=== PATIENT | female | born 1985 | race Asian ===

== ENCOUNTER 2020-03-05 10:15 | Outpatient (CLI) | payer OTHER ==
[2020-03-05 11:45] LABS: BASOPHILS # (AUTO) 0.1 10^3/uL (0.0-0.1); BASOPHILS % (AUTO) 1.9 %; EOSINOPHILS # (AUTO) 0.1 10^3/uL (0.0-0.7); EOSINOPHILS % (AUTO) 1.7 %; HGB - HEMOGLOBIN 13.7 g/dL (12.0-16.0); LYMPHOCYTES % (AUTO) 34.4 %; MEAN CORPUSCULAR HEMOGLOBIN 28.4 pg (27.0-31.0); MEAN CORPUSCULAR HGB CONC 32.6 g/dL (32.0-36.0); MEAN PLATELET VOLUME 9.5 fL (7.9-10.8); MONOCYTES # (AUTO) 0.4 10^3/uL (0.0-1.0); MONOCYTES % (AUTO) 6.1 %; NEUTROPHILS # (AUTO) 3.3 10^3/uL (1.5-6.6); NEUTROPHILS % (AUTO) 55.7 %; PLT - PLATELET COUNT 457 10^3/uL (130-450); RED BLOOD COUNT 4.83 10^6/uL (4.20-5.40); RED CELL DISTRIBUTION WIDTH 13.2 % (12.0-15.0); WHITE BLOOD COUNT 5.9 x10^3/uL (4.8-10.8)
[2020-03-05 12:17] LABS: ALBUMIN 3.9 g/dL (3.2-5.5); ALBUMIN/GLOBULIN RATIO 1.1 (1.0-2.2); ALKALINE PHOSPHATASE 64 IU/L (42-121); ALT ALANINE AMINOTRANSFERASE 26 IU/L (10-60); AST ASPARTATE AMINOTRANSFERASE 14 IU/L (10-42); BILIRUBIN,TOTAL 0.5 mg/dL (0.2-1.0); BUN - BLOOD UREA NITROGEN 11 mg/dL (6-20); CALCIUM 9.2 mg/dL (8.5-10.3); CARBON DIOXIDE - CO2 23 mmol/L (21-32); CHLORIDE 105 mmol/L (101-111); CHOL/HDL RATIO 3.9 (<4.4); CHOLESTEROL 164 mg/dL; CREATININE 0.9 mg/dL (0.4-1.0); GLUCOSE 89 mg/dL (70-100); HDL CHOLESTEROL 42 mg/dL; LDL CHOLESTEROL,CALCULATED 101 mg/dL; LDL/HDL RATIO 2.4 (<4.4); SODIUM 136 mmol/L (135-145); TOTAL PROTEIN 7.5 g/dL (6.7-8.2); VLDL CHOLESTEROL 21 mg/dL
== END 2020-03-05 23:59 | disposition home or self-care (01) ==
LOC: LAB.WCP 10:15
PROVIDERS: ATTEND Nurse Practitioner
DX: I10 Essential (primary) hypertension (principal); R79.89 Other specified abnormal findings of blood chemistry; Z13.228 Encounter for screening for other metabolic disorders; Z13.220 Encounter for screening for lipoid disorders
CPT/HCPCS: 36415; 80053; 80061; 83721; 85025

== ENCOUNTER 2020-08-21 14:44 | Outpatient (CLI) | payer OTHER ==
[2020-08-21 19:20] LABS: BASOPHILS # (AUTO) 0.1 10^3/uL (0.0-0.1); BASOPHILS % (AUTO) 0.3 %; HGB - HEMOGLOBIN 14.2 g/dL (12.0-16.0); LYMPHOCYTES # (AUTO) 1.3 10^3/uL (1.5-3.5); LYMPHOCYTES % (AUTO) 5.1 %; MEAN CORPUSCULAR HEMOGLOBIN 28.4 pg (27.0-31.0); MEAN CORPUSCULAR HGB CONC 31.6 g/dL (32.0-36.0); MEAN CORPUSCULAR VOLUME 89.8 fL (81.0-99.0); MEAN PLATELET VOLUME 9.5 fL (7.9-10.8); MONOCYTES # (AUTO) 1.2 10^3/uL (0.0-1.0); MONOCYTES % (AUTO) 4.9 %; NEUTROPHILS # (AUTO) 21.7 10^3/uL (1.5-6.6); PLT - PLATELET COUNT 476 10^3/uL (130-450); RED CELL DISTRIBUTION WIDTH 13.1 % (12.0-15.0); WHITE BLOOD COUNT 24.4 x10^3/uL (4.8-10.8)
[2020-08-21 19:28] LABS: ALBUMIN 3.5 g/dL (3.2-5.5); ALBUMIN/GLOBULIN RATIO 0.9 (1.0-2.2); BILIRUBIN,TOTAL 1.1 mg/dL (0.2-1.0); CALCIUM 8.9 mg/dL (8.5-10.3); CREATININE 0.9 mg/dL (0.4-1.0); TOTAL PROTEIN 7.4 g/dL (6.7-8.2)
[2020-08-21 19:48] LABS: BILIRUBIN,URINE NEGATIVE (NEGATIVE); GLUCOSE, URINE (UA) NEGATIVE (NEGATIVE); KETONES,URINE (UA) 15 mg/dL (NEGATIVE); LEUKOCYTE ESTERASE, URINE NEGATIVE (NEGATIVE); NITRITE,URINE NEGATIVE (NEGATIVE); OCCULT BLOOD,URINE NEGATIVE (NEGATIVE); PH,URINE 6.5 PH (5.0-7.5); PROTEIN,URINE TRACE mg/dL (NEGATIVE); UROBILINOGEN,URINE 1 (NORMAL) E.U./dL (NORMAL)
[2020-08-21 20:06] LABS: BACTERIA,URINE Many /HPF (None Seen); CLARITY,URINE CLEAR (CLEAR); RBC,URINE None Seen /HPF (0-5); SQUAMOUS EPITHELIAL CELL,UR MANY Squamous (<= Few)
[2020-08-21 20:42] LABS: PLATELET ESTIMATE, MANUAL INCREASED (>450,000) (NORMAL); PLATELET MORPHOLOGY NORMAL APPEARANCE (NORMAL); RBC MORPHOLOGY (MULTIPLE) NORMAL APPEARANCE (NORMAL)
[2020-08-21 20:43] LABS: DIFFERENTIAL COMMENT MANUAL=AUTO DIFF
== END 2020-08-21 23:59 | disposition home or self-care (01) ==
LOC: LAB.N 14:44
PROVIDERS: ATTEND Nurse Practitioner
DX: R10.9 Unspecified abdominal pain (principal)
CPT/HCPCS: 36415; 80053; 81001; 82150; 83690; 85025; 87086

== ENCOUNTER 2020-08-22 15:48 | Outpatient (CLI) | payer OTHER ==
[2020-08-22] MEDS ORDERED: IOVERSOL 320 100 ML VIAL IVP ONE ×2 (16:02→17:03)
[2020-08-22] MEDS ORDERED: IOVERSOL 320 50 ML VIAL ONE (16:02)
[2020-08-22] MEDS ORDERED: IOVERSOL 320 50 ML VIAL PO ONE (17:04)
--- NOTE | 2020-08-22 17:29 | CT Report ---
PROCEDURE: Abdomen/Pelvis W INDICATIONS: ABD PAIN, ELEVATED WHITE BLOOD CELL COUNT CONTRAST: IV CONTRAST: Optiray 320 ml: 100 PO CONTRAST: Optiray 320 ml50 TECHNIQUE: After the administration of oral and nonionic IV contrast, 5 mm thick sections acquired from the diap hragms to the symphysis. 5 mm thick coronal and sagittal reformats were acquired. For radiation dos e reduction, the following was used: automated exposure control, adjustment of mA and/or kV accordin g to patient size. COMPARISON: None. FINDINGS: Image quality: Excellent. ABDOMEN: Lung bases: Lung bases are clear. Heart size is normal. Solid organs: Liver and spleen are normal in size and enhancement. Gallbladder demonstrates a hyper enhancing wall Biliary system is non dilated. Generalized inflammatory changes can be seen surrounding the pancreas, as well as throughout the uppe r abdomen, with mesenteric free fluid and fatty stranding. The pancreas enhances normally, without ne crotic areas. No pancreatic ductal dilatation can be seen. No adrenal nodules. Kidneys demonstrate normal size and enhancement. Moderate bilateral hydronephros is can be seen. Peritoneum and bowel: Mild generalized wall thickening can be seen of the stomach. There is a bowel w all thickening can be seen throughout the upper abdomen. The hepatic flexure, the splenic flexure and the descending colon demonstrate a mildly irregular hyperenhancing wall. Mild wall thickening and hy perenhancement can also be seen involving the distal sigmoid colon and the rectum. No definite free a ir can be seen. There is an apparent duodenal diverticulum proximally. No loculated abscess collectio n can be seen. Mild free fluid can be seen, including layering within the pelvis. A normal appendix i s seen, as on series 6 image 30. Nodes and vessels: No retroperitoneal or mesenteric adenopathy by size criteria. However, borderline prominent mesenteric lymph nodes are seen. Aorta and inferior vena cava are normal in size. Miscellaneous: A mild fat-containing periumbilical hernia is seen. PELVIS: Genitourinary: Bladder wall thickness is normal. Miscellaneous: No inguinal hernias or adenopathy. Bones: No suspicious bony lesions. No vertebral body compression fractures. IMPRESSION: Generalized inflammatory change can be seen involving the upper abdomen, with numerous a reas of bowel wall thickening as well as fatty stranding. Borderline prominent lymph nodes are seen. The imaging appearance is nonspecific, although please consider pancreatitis. No findings of perforation or abscess are detected. Generalized free fluid can be seen, including a mild amount of free fluid layering within the pelvis. Mild bilateral hydronephrosis can be seen. Incidental note is made of: Fat-containing periumbilical hernia Normal appendix Note: Case discussed by telephone with Yina Hutton at 4:25 PM [place] time on 08/22/2020. Reviewed by: Ancelmo Hidalgo MD on 08/22/2020 4:27 PM [place] Approved by: Ancelmo Hidalgo MD on 08/22/2020 4:27 PM [place]ST Station ID: [id number]
== END 2020-08-22 15:49 | disposition home or self-care (01) ==
LOC: DI 15:48
PROVIDERS: ATTEND Nurse Practitioner Family
DX: N13.30 Unspecified hydronephrosis (principal); R93.5 Abnormal findings on diagnostic imaging of other abdominal regions, including retroperitoneum; R59.0 Localized enlarged lymph nodes
CPT/HCPCS: 74177; Q9967

== ENCOUNTER 2020-08-26 14:31 | Outpatient (CLI) | payer OTHER ==
[2020-08-26 18:53] LABS: BASOPHILS % (AUTO) 0.7 %; EOSINOPHILS % (AUTO) 0.6 %; LYMPHOCYTES % (AUTO) 10.7 %; MEAN CORPUSCULAR HEMOGLOBIN 28.6 pg (27.0-31.0); MEAN CORPUSCULAR HGB CONC 32.6 g/dL (32.0-36.0); MEAN CORPUSCULAR VOLUME 87.8 fL (81.0-99.0); MEAN PLATELET VOLUME 9.1 fL (7.9-10.8); MONOCYTES % (AUTO) 5.8 %; NEUTROPHILS % (AUTO) 77.9 %; PLT - PLATELET COUNT 690 10^3/uL (130-450); RED CELL DISTRIBUTION WIDTH 13.2 % (12.0-15.0); WHITE BLOOD COUNT 18.7 x10^3/uL (4.8-10.8)
[2020-08-26 18:58] LABS: ALBUMIN 3.1 g/dL (3.2-5.5); ALBUMIN/GLOBULIN RATIO 0.7 (1.0-2.2); ALKALINE PHOSPHATASE 100 IU/L (42-121); ALT ALANINE AMINOTRANSFERASE 15 IU/L (10-60); AMYLASE 53 U/L (28-100); AST ASPARTATE AMINOTRANSFERASE 12 IU/L (10-42); BILIRUBIN,TOTAL 0.5 mg/dL (0.2-1.0); BUN - BLOOD UREA NITROGEN 7 mg/dL (6-20); CALCIUM 8.9 mg/dL (8.5-10.3); CARBON DIOXIDE - CO2 26 mmol/L (21-32); CHLORIDE 97 mmol/L (101-111); CHOL/HDL RATIO 6.1 (<4.4); CHOLESTEROL 121 mg/dL; CREATININE 0.8 mg/dL (0.4-1.0); GLUCOSE 107 mg/dL (70-100); HDL CHOLESTEROL 20 mg/dL; LDL CHOLESTEROL,CALCULATED 75 mg/dL; LDL/HDL RATIO 3.8 (<4.4); LIPASE 47 U/L (22-51); SODIUM 136 mmol/L (135-145); TOTAL PROTEIN 7.5 g/dL (6.7-8.2); VLDL CHOLESTEROL 26 mg/dL
[2020-08-26 19:27] LABS: ABNORMAL LYMPHS % (MANUAL) 0 %
[2020-08-26 21:26] LABS: BAND NEUTROPHILS % (MANUAL) 14 %; EOSINOPHILS # (MANUAL) 0.4 10^3/uL (0-0.7); LYMPHOCYTES # (MANUAL) 1.3 10^3/uL (1.5-3.5); LYMPHOCYTES % (MANUAL) 6 %; MONOCYTES # (MANUAL) 1.7 10^3/uL (0.0-1.0); RBC MORPHOLOGY (MULTIPLE) NORMAL APPEARANCE (NORMAL)
[2020-08-26 21:27] LABS: PLATELET ESTIMATE, MANUAL INCREASED (>450,000) (NORMAL); PLATELET MORPHOLOGY NORMAL APPEARANCE (NORMAL)
[2020-08-27 01:18] LABS: DIFFERENTIAL COMMENT MANUAL DIFFERENTIAL
== END 2020-08-26 23:59 | disposition home or self-care (01) ==
LOC: LAB.WCP 14:31
PROVIDERS: ATTEND Nurse Practitioner Family
DX: K85.00 Idiopathic acute pancreatitis without necrosis or infection (principal); R10.13 Epigastric pain
CPT/HCPCS: 36415; 80053; 80061; 82150; 83690; 83721; 85025

== ENCOUNTER 2020-08-28 04:43 | Emergency (ER) | payer OTHER ==
--- NOTE | 2020-08-28 05:17 | ED Physician Documentation ---
History of Present Illness - Stated complaint Stated Complaint: CHILLS - Chief complaint Chief Complaint: Abd Pain - History obtained from History obtained from: Patient - Additonal information Additional information: Patient comes emergency department with chief complaint of chills this morning. Patient has been in the process of work-up and treatment for leukocytosis and pancreatitis with her primary care physician as an outpatient. The patient states that the symptoms first started 1 to 2 weeks ago, and that actually, her abdominal pain and nausea have much improved. Patient has not been running any fevers that she knows of, though she has not had regular thermometer at home and has had to use a knee thermometer. The patient states that overall, she feels quite a bit better, but then had the chills this morning. She states she googled chills and saw descriptions of sepsis and became concerned. Patient scheduled to see her primary care physician today. She has had 2 sets of labs in the last week which have demonstrated initially a quite high white count of 24.4 but on most recent value, has come down to 18.7. Initially, patient had elevated amylase and lipase, though these were normal on the last set of labs. Patient also had CT scan of the abdomen pelvis which did show some fluid in the upper abdomen and some inflammation of the upper abdominal structures. This was felt to be consistent with probable pancreatitis by the radiologist. No other complaints at this time. No new development of symptoms beyond the chills. Review of Systems Ten Systems: 10 systems reviewed and negative Constitutional: reports: Chills, Reviewed and negative. denies: Fever Eyes: reports: Reviewed and negative Ears: reports: Reviewed and negative Nose: reports: Reviewed and negative. denies: Rhinorrhea / runny nose Throat: reports: Reviewed and negative Cardiac: reports: Reviewed and negative. denies: Chest pain / pressure Respiratory: reports: Reviewed and negative. denies: Dyspnea, Cough GI: reports: Reviewed and negative. denies: Abdominal Pain, Nausea, Vomiting : reports: Reviewed and negative Skin: reports: Reviewed and negative Musculoskeletal: reports: Reviewed and negative Neurologic: reports: Reviewed and negative Psychiatric: reports: Reviewed and negative Endocrine: reports: Reviewed and negative Immunocompromised: reports: Reviewed and negative PD PAST MEDICAL HISTORY - Past Medical History Past Medical History: Yes Cardiovascular: Hypertension - Past Surgical History Past Surgical History: No - Allergies Allergies/Adverse Reactions: Allergies Allergy/AdvReac Type Severity Reaction Status Date / Time No Known Drug Allergies Allergy Verified 08/28/20 04:46 - Social History Does the pt smoke?: No Smoking Status: Never smoker Does the pt drink ETOH?: No Does the pt have substance abuse?: No - Immunizations Immunizations are current?: Yes - POLST Patient has POLST: No PD ED PE NORMAL - Vitals Vital signs reviewed: Yes - General General: Alert and oriented X 3, No acute distress, Well developed/nourished - HEENT HEENT: Atraumatic, PERRL, EOMI, Moist mucous membranes - Neck Neck: Supple, no meningeal sign - Cardiac Cardiac: RRR, No murmur, Strong equal pulses - Respiratory Respiratory: No respiratory distress, Clear bilaterally - Abdomen Abdomen: Soft, Non tender, Non distended - Back Back: No CVA TTP - Derm Derm: Normal color, Warm and dry, No rash - Extremities Extremities: No deformity, No edema, No calf tenderness / cord - Neuro Neuro: Alert and oriented X 3, catering assistant 2-12 intact, Normal speech - Psych Psych: Normal mood, Normal affect Results - Vitals Vitals: Vital Signs - 24 hr 08/28/20 08/28/20 04:46 04:52 Temperature 36.5 C 36.5 C Heart Rate 100 100 Respiratory 16 16 Rate Blood Pressure 160/100 H 160/100 H O2 Saturation 100 100 Oxygen O2 Source Room air PD MEDICAL DECISION MAKING - ED course Complexity details: considered differential, d/w patient ED course: I reviewed the patient's records. She was overall very well-appearing and I did reassure her that her vital signs and physical exam do not indicate sepsis whatsoever. I did offer to repeat her labs and see how her white blood cell count is doing, but after some consideration, the patient stated that she would rather just go see her primary care physician for repeat labs. The patient states she overall feels better and just got worried about the chills. She feels reassured by coming here and being examined and evaluated and does not feel inclined to have further blood work done in the emergency department. At this point in time, given the patient's abdomen is feeling better, I do not feel that a repeat CT scan is indicated. We have discussed the usual indications for return. Departure - Departure Disposition: Home, Self Care Clinical Impression: Chills (without fever) Leukocytosis Qualifiers: Leukocytosis type: unspecified Qualified Code(s): D72.829 - Elevated white blood cell count, unspecified Condition: Stable Comments: Your labs have been reviewed today, and you did have a good rather significant white blood cell elevation last week. This does appear to be improving, though it is not clear exactly what has caused her symptoms, as your pancreatic enzymes are normal on laboratory values. Most likely, your body is working through a viral pancreatitis,, though there could be other causes. There is no evidence of sepsis tonight. However, if you begin to run high fevers or feel dizzy/faint, you should be reevaluated without delay. You have opted to forego repeat laboratory testing here in the emergency department. Please drink plenty of fluids and follow-up with your doctor as planned.
[2020-08-28 05:23] VITALS: BP 159/90
== END 2020-08-28 05:23 | disposition home or self-care (01) ==
LOC: ED 04:43
DX: R68.83 Chills (without fever) (principal); D72.829 Elevated white blood cell count, unspecified; I10 Essential (primary) hypertension
CPT/HCPCS: 99281; 99282

== ENCOUNTER 2020-09-05 08:00 | Outpatient (CLI) | payer OTHER ==
[2020-09-05 18:11] LABS: BASOPHILS # (AUTO) 0.1 10^3/uL (0.0-0.1); EOSINOPHILS # (AUTO) 0.2 10^3/uL (0.0-0.7); EOSINOPHILS % (AUTO) 3.9 %; HGB - HEMOGLOBIN 13.4 g/dL (12.0-16.0); LYMPHOCYTES # (AUTO) 1.9 10^3/uL (1.5-3.5); MEAN CORPUSCULAR HEMOGLOBIN 27.4 pg (27.0-31.0); MEAN CORPUSCULAR HGB CONC 30.3 g/dL (32.0-36.0); MEAN CORPUSCULAR VOLUME 90.4 fL (81.0-99.0); MONOCYTES # (AUTO) 0.3 10^3/uL (0.0-1.0); MONOCYTES % (AUTO) 6.6 %; NEUTROPHILS # (AUTO) 1.9 10^3/uL (1.5-6.6); NEUTROPHILS % (AUTO) 43.3 %; PLT - PLATELET COUNT 626 10^3/uL (130-450); RED BLOOD COUNT 4.89 10^6/uL (4.20-5.40); RED CELL DISTRIBUTION WIDTH 13.1 % (12.0-15.0); WHITE BLOOD COUNT 4.4 x10^3/uL (4.8-10.8)
[2020-09-05 18:33] LABS: ALBUMIN 3.5 g/dL (3.2-5.5); ALBUMIN/GLOBULIN RATIO 0.9 (1.0-2.2); BILIRUBIN,TOTAL 0.5 mg/dL (0.2-1.0); CALCIUM 9.2 mg/dL (8.5-10.3); CREATININE 1.1 mg/dL (0.4-1.0); TOTAL PROTEIN 7.5 g/dL (6.7-8.2)
== END 2020-09-05 23:59 | disposition home or self-care (01) ==
LOC: LAB.WCP 08:00
PROVIDERS: ATTEND Nurse Practitioner Family
DX: K85.00 Idiopathic acute pancreatitis without necrosis or infection (principal)
CPT/HCPCS: 36415; 80053; 82150; 83690; 85025

== ENCOUNTER 2020-09-10 03:54 | Observation (INO) | payer OTHER ==
--- NOTE | 2020-09-10 04:12 | ED Physician Documentation ---
PD HPI ABD PAIN - Stated complaint Stated Complaint: ADB PX - Chief complaint Chief Complaint: Abd Pain - History obtained from History obtained from: Patient - History of Present Illness Timing - onset: Enter time (23:00), Last night Timing - details: Abrupt onset, Waxing and waning Pain level now: 8 Quality: Pain Location: RUQ, Epigastric Radiation: Other (no radiation) Improved by: Other Associated symptoms: No: Fever Recently seen: Clinic, Emergency Dept - Additional information Additional information: patient has had episodic upper abdominal discomfort past few weeks for which she has had outpatient testing including CT A/P, as well as ED evaluation earlier this month. Unclear etiology; pancreatitis was suspected although she only had mild elevations in amylase/lipase and CT did not clearly demonstrate findings of pancreatitis. Patient is scheduled to have outpatient RUQ US in 3 days. She presents tonight due to epigastric and RUQ pain. This episode started at 11 PM and was initially a burning sensation "like stomach acid" (per patient), but progressed to saul pain and pressure sensation that waxes and wanes without apparent exacerbating nor ameliorating factors. Review of Systems Constitutional: reports: Reviewed and negative Eyes: reports: Reviewed and negative Ears: reports: Reviewed and negative Nose: reports: Reviewed and negative Throat: reports: Reviewed and negative Cardiac: reports: Reviewed and negative Respiratory: reports: Reviewed and negative GI: reports: Abdominal Pain, Nausea. denies: Abdominal Swelling, Vomiting, Constipation, Diarrhea : denies: Dysuria, Frequency, Now EGA Skin: reports: Reviewed and negative Musculoskeletal: reports: Reviewed and negative Neurologic: denies: Generalized weakness, Headache PD PAST MEDICAL HISTORY - Past Medical History Past Medical History: Yes Cardiovascular: Hypertension - Past Surgical History Past Surgical History: No - Present Medications Home Medications: Ambulatory Orders Medication Instructions Recorded Confirmed Ethinyl Estradiol/Drospirenone 1 each PO 09/10/20 [Iqra 28 Tablet] - Allergies Allergies/Adverse Reactions: Allergies Allergy/AdvReac Type Severity Reaction Status Date / Time No Known Drug Allergies Allergy Verified 09/10/20 04:01 - Social History Does the pt smoke?: No Smoking Status: Never smoker Does the pt drink ETOH?: No Does the pt have substance abuse?: No - Immunizations Immunizations are current?: Yes - POLST Patient has POLST: No PD ED PE NORMAL - Vitals Vital signs reviewed: Yes - General General: Alert and oriented X 3, No acute distress, Well developed/nourished - HEENT HEENT: Moist mucous membranes - Neck Neck: Supple, no meningeal sign - Cardiac Cardiac: No murmur - Respiratory Respiratory: No respiratory distress, Clear bilaterally - Abdomen Abdomen: Soft, Non distended, Other (TTP RUQ and epigastrium) - Back Back: No CVA TTP - Derm Derm: Normal color, Warm and dry - Extremities Extremities: No edema PD ED PE EXPANDED - Cardiac Cardiac: Tachy, Regular Rhythm Results - Vitals Vitals: Vital Signs - 24 hr 09/10/20 09/10/20 09/10/20 03:56 06:00 06:44 Temperature 36.4 C L 36.5 C 36.6 C Heart Rate 112 H 105 H 122 H Respiratory 18 18 18 Rate Blood Pressure 185/109 H 199/97 H 190/121 H O2 Saturation 100 100 100 09/10/20 08:00 Temperature Heart Rate 110 H Respiratory Rate Blood Pressure 179/101 H O2 Saturation 100 Oxygen O2 Source Room air - Labs Labs: Laboratory Tests 09/10/20 09/10/20 09/10/20 04:10 04:10 04:18 WBC 9.1 RBC 4.83 Hgb 13.5 Hct 43.3 MCV 89.6 MCH 28.0 MCHC 31.2 L RDW 13.2 Plt Count 570 H MPV 8.8 Neut # (Auto) 6.4 Lymph # (Auto) 2.0 [place] # (Auto) 0.4 Eos # (Auto) 0.1 Baso # (Auto) 0.2 H Absolute Nucleated RBC 0.00 Nucleated RBC % 0.0 Sodium Potassium Chloride Carbon Dioxide Anion Gap BUN Creatinine Estimated GFR (MDRD) Glucose Calcium Total Bilirubin AST ALT Alkaline Phosphatase Total Protein Albumin Globulin Albumin/Globulin Ratio Lipase Urine Color YELLOW Urine Clarity CLEAR Urine pH 6.0 Ur Specific [place] 1.020 Urine Protein NEGATIVE Urine Glucose (UA) NEGATIVE Urine Ketones NEGATIVE Urine Occult Blood NEGATIVE Urine Nitrite NEGATIVE Urine Bilirubin NEGATIVE Urine Urobilinogen 0.2 (NORMAL) Ur Leukocyte Esterase NEGATIVE Ur Microscopic Review NOT INDICATED Urine Culture Comments NOT INDICATED Urine HCG, Qual NEGATIVE 09/10/20 04:18 WBC RBC Hgb Hct MCV MCH MCHC RDW Plt Count MPV Neut # (Auto) Lymph # (Auto) [place] # (Auto) Eos # (Auto) Baso # (Auto) Absolute Nucleated RBC Nucleated RBC % Sodium 135 Potassium 3.3 L Chloride 101 Carbon Dioxide 22 Anion Gap 12.0 BUN 12 Creatinine 0.9 Estimated GFR (MDRD) 72 L Glucose 122 H Calcium 9.1 Total Bilirubin 0.3 AST 32 ALT 82 H Alkaline Phosphatase 67 Total Protein 8.0 Albumin 4.0 Globulin 4.0 Albumin/Globulin Ratio 1.0 Lipase 49 Urine Color Urine Clarity Urine pH Ur Specific [place] Urine Protein Urine Glucose (UA) Urine Ketones Urine Occult Blood Urine Nitrite Urine Bilirubin Urine Urobilinogen Ur Leukocyte Esterase Ur Microscopic Review Urine Culture Comments Urine HCG, Qual - Rads (name of study) RUQ US Radiology: Prelim report reviewed PD MEDICAL DECISION MAKING - ED course Complexity details: reviewed results, re-evaluated patient, considered differential, d/w patient ED course: blood tests are reassuring and significantly improved from some recent results. However, RUQ US demonstrates cholelithiasis with 1.3cm stone impacted in gallbladder neck as well as pericholecystic fluid and dilated extrahepatic ducts. Patient had good pain relief with IV toradol and 0.5mg dilaudid, but eventually required repeat dose of dilaudid. Results d/w Dr. Campos, will admit to [facility]. I also d/w Dr. Albarado (at [place]), agrees patient can be admitted to [facility] but requests [place] be recontacted if patient requires transfer to another facility. Departure - Departure Disposition: [address] [facility] DC/Xfer Clinical Impression: Biliary colic Condition: Stable
[2020-09-10 04:25] LABS: BASOPHILS # (AUTO) 0.2 10^3/uL (0.0-0.1); BASOPHILS % (AUTO) 1.8 %; EOSINOPHILS # (AUTO) 0.1 10^3/uL (0.0-0.7); EOSINOPHILS % (AUTO) 1.3 %; HGB - HEMOGLOBIN 13.5 g/dL (12.0-16.0); LYMPHOCYTES % (AUTO) 21.5 %; MEAN CORPUSCULAR HGB CONC 31.2 g/dL (32.0-36.0); MEAN CORPUSCULAR VOLUME 89.6 fL (81.0-99.0); MEAN PLATELET VOLUME 8.8 fL (7.9-10.8); MONOCYTES # (AUTO) 0.4 10^3/uL (0.0-1.0); MONOCYTES % (AUTO) 4.4 %; NEUTROPHILS # (AUTO) 6.4 10^3/uL (1.5-6.6); NEUTROPHILS % (AUTO) 70.7 %; PLT - PLATELET COUNT 570 10^3/uL (130-450); RED BLOOD COUNT 4.83 10^6/uL (4.20-5.40); RED CELL DISTRIBUTION WIDTH 13.2 % (12.0-15.0); WHITE BLOOD COUNT 9.1 x10^3/uL (4.8-10.8)
[2020-09-10 04:26] LABS: BILIRUBIN,URINE NEGATIVE (NEGATIVE); GLUCOSE, URINE (UA) NEGATIVE (NEGATIVE); KETONES,URINE (UA) NEGATIVE (NEGATIVE); LEUKOCYTE ESTERASE, URINE NEGATIVE (NEGATIVE); NITRITE,URINE NEGATIVE (NEGATIVE); OCCULT BLOOD,URINE NEGATIVE (NEGATIVE); PROTEIN,URINE NEGATIVE (NEGATIVE); UROBILINOGEN,URINE 0.2 (NORMAL) E.U./dL (NORMAL)
[2020-09-10 04:29] LABS: CLARITY,URINE CLEAR (CLEAR); HCG UR QUAL NEGATIVE
[2020-09-10 04:39] LABS: BILIRUBIN,TOTAL 0.3 mg/dL (0.2-1.0); CALCIUM 9.1 mg/dL (8.5-10.3); CREATININE 0.9 mg/dL (0.4-1.0)
[2020-09-10] MEDS ORDERED: HYDROmorphone 1 MG/ML CARPUJECT IVP STA (04:42)
[2020-09-10] MEDS ORDERED: KETOROLAC 30 MG/ML VIAL IVP STA (04:42)
[2020-09-10] MEDS ORDERED: SODIUM CHLORIDE 0.9% 1,000 ML IV STA (08:23)
[2020-09-10] MEDS ORDERED: HYDROmorphone 0.5 MG/0.5 ML SYRINGE IVP STA ×2 (08:26→11:10)
[2020-09-10] MEDS ORDERED: ONDANSETRON 4 MG/2 ML VIAL IVP PRN (11:08)
[2020-09-10] MEDS ORDERED: PIPERACILLIN/TAZOBACTAM 3.375 GM in SODIUM CHLORIDE 0.9% MINIBAG 100 ML IV STA (11:25)
--- NOTE | 2020-09-10 11:52 | ED Physician Documentation ---
ED Addendum - Addendum Addendum: 09/10/20 11:51 35-year-old female being hospitalized with acute cholecystitis has a respiratory PCR drawn to rule out coronavirus prior to admission
--- NOTE | 2020-09-10 12:29 | Ultrasound Report ---
PROCEDURE: Abdomen Limited INDICATIONS: abd. pain TECHNIQUE: Real-time scanning was performed of the abdominal and retroperitoneal organs, with image documentatio n. COMPARISON: None. FINDINGS: Liver: Liver is enlarged measuring 16.3 cm with increased echogenicity. Gallbladder: Focal areas of increased echogenicity are present within the gallbladder. Wall thickness is at the upper limits of normal measuring 2.8 mm. Mild pericholecystic fluid is present. Biliary ducts: Intrahepatic bile ducts are non-dilated. Extrahepatic bile duct caliber measures 10. 1 mm. Normal is 6-7 mm or less in diameter, or 10 mm or less post-cholecystectomy. Pancreas: Visualized portions of the pancreas are sonographically normal. Kidneys: Right kidney measures 10.1 cm long. No nephrolithiasis. Minimal appearance of right pelvi ocaliectasis is present. No solid masses. IVC: Intrahepatic inferior vena cava is patent. Miscellaneous: No free abdominal fluid. IMPRESSION: 1. Hepatomegaly steatosis. 2. Cholelithiasis with borderline wall thickness and peristalsis fluid suggestive of developing silviano cystitis. Clinical correlation is recommended. It is noted that the common bile duct is enlarged. Dis roz ductal stone cannot be excluded although not definitively visualized. CT abdomen pelvis or MRCP i s recommended for further evaluation. Reviewed by: Sayda Toribio MD on 09/10/2020 12:28 PM PST Approved by: Sayda Toribio MD on 09/10/2020 12:28 PM PST Station ID: [id number]
[2020-09-10 13:04] LABS: C. PNEUMONIAE- RESP PCR PANEL NOT DETECTED
[2020-09-10] MEDS: D5NS W/20 MEQ KCL 1,000 ML IV SCH ×2 (13:23→20:23)
[2020-09-10] MEDS: KETOROLAC 30 MG/ML VIAL IVP SCH ×2 (13:23→18:13)
[2020-09-10] MEDS: methocarbamoL 500 MG TABLET PO SCH ×2 (13:33→18:13)
[2020-09-10] MEDS: METOCLOPRAMIDE 10 MG/2 ML VIAL IVP SCH ×2 (13:34→18:13)
--- NOTE | 2020-09-10 18:20 | SURGERY HX AND PHYSICAL(T) ---
Surgical History & Physical - Chief Complaint/HPI Chief Complaint: Abdominal pain; biliary colic History of Present Illness: 35-year-old female nuliparous/gravid, no prior abdominal surgery, who presents with recurrent ongoing abdominal pain that was recently evaluated through the emergency room and concerning for pancreatitis. She was pending continued outpatient work-up up until the time she was referred to the emergency room. She has had multiple episodes of nausea abdominal pain associated with fatty foods. Her ultrasound was consistent with cholelithiasis and early cholecystitis. Patient was explained this is likely the etiology of her recent diagnosis of pancreatitis which was in all probability gallstone in etiology. She was counseled that given the findings of biliary dilatation the concern for choledocholithiasis would necessarily need to be ruled out by MRCP prior to proceeding with surgical resection. She has no significant past medical history, no significant family history, and is eager for definitive intervention. She is admitted and pending operative intervention following completion of her work-up. - PMH/PSH/Social Hx Does the pt have a hx of MRSA?: No Cardiovascular: Hypertension Respiratory: Pneumonia PMH Other: pancreatitis Smoking Status: Never smoker Does the pt drink ETOH?: No Does the pt have substance abuse?: No - Home Meds and Allergies Home Medications: Ethinyl Estradiol/Drospirenone [Iqra 28 Tablet] 1 each PO 09/10/20 Metoprolol Tartrate [Lopressor] 50 mg PO DAILY 09/10/20 Omeprazole [PriLOSEC] 20 mg PO DAILY 09/10/20 Sucralfate [Carafate] 09/10/20 Allergies/Adverse Reactions: Allergies Allergy/AdvReac Type Severity Reaction Status Date / Time No Known Drug Allergies Allergy Verified 09/10/20 04:01 - Review of Systems Constitutional: Fatigue, Fever Gastrointestinal: Nausea, Vomiting, Abdominal pain - Vital Signs Heart Rate: 99 Blood Pressure: 168/122 Temperature: 36.9 C Respiratory Rate: 18 O2 Saturation: 99 Weight (kg): 94 kg Height: 1.63 m - Physical Exam General Appearance: positive: No acute distress, Alert Eyes Bilatera: positive: Normal inspection, PERRL, EOMI ENT: positive: ENT inspection nml Neck: positive: Nml inspection Respiratory: positive: Chest non-tender, No respiratory distress, Breath sounds nml. negative: Wheezes, Rales, Rhonchi Cardiovascular: positive: Regular rate & rhythm Abdomen: positive: Non-tender, No distention. negative: Tenderness, Guarding, Rebound Skin: positive: Color nml Extremities: positive: Non-tender, Full ROM, Nml appearance, No pedal edema Neurologic/Psychiatric: positive: Oriented x3, CN's nml (2-12), Motor nml, Sensation nml, Mood/affect nml - Patient Review Patient Review: Problems were reviewed with the patient during this visit. Medications were reviewed with the patient during this visit. Allergies were reviewed this patient during this visit. Pertinent Tests Reviewed: All pertitent test for this patient were reviewed. - Assessment & Plan Assessment and Plan: 35-year-old female with no significant past medical history presenting with early acute cholecystitis and biliary colic with multiple recent trips to the ER for abdominal pain; most recent of which concerning for pancreatitis however in this clinical context following abdominal ultrasound with cholelithiasis was likely gallstone in etiology. There is no leukocytosis. Concern for choledocholithiasis. Pending MRCP. Plan going forward is as follows: 1. Bowel rest, IV fluid resuscitation, IV antibiotics. 2. Preoperative chest x-ray, preoperative EKG, labs evaluated. 3. Planned diagnostic laparoscopy, laparoscopic cholecystectomy, other indicated procedures. Patient counseled of the risk associated with operative intervention including but not limited to conversion to open procedure, injury to local structures, and anesthesia risks of heart attack, stroke, . There is also the risk of injury to the biliary system. There is also concern for choledocholithiasis which we will evaluate with MRCP. 4. Postoperative care under observation status with continued IV antibiotics. CT abdomen pelvis August 22, 2020 impression: 1. Generalized inflammatory change can seen involving the upper abdomen, with numerous areas of bowel wall thickening as well as fatty stranding. Borderline prominent lymph nodes are seen. The imaging appearance is nonspecific although please consider pancreatitis. 2. No findings of perforation or abscess are detected. 3. Generalized free fluid can be seen, involving a mild amount of free fluid layering within the pelvis. 4. Mild bilateral hydronephrosis can be seen. Abdominal ultrasound September 10 impression: 1. Hepatomegaly with steatosis. 2. Cholelithiasis with borderline wall thickness and peripancreatic fluid suggested of developing cholecystitis. Clinical correlation is recommended. It is noted that the common bile duct is enlarged. Distal ductal stone cannot be excluded although not definitively visualized. CT abdomen pelvis or MRCP is recommended for further evaluation. Please note that voice recognition software was used to transcribe this note and inadvertent errors might persist in spite of review and editing. I am obliged to you for your attention. I am thankful to you for allowing me to participate with you in this care of this patient.
[2020-09-10] MEDS: LORazepam 2 MG/ML VIAL IVP PRN (18:41)
[2020-09-10] MEDS: METOPROLOL 5 MG/5 ML VIAL IVP PRN (18:42)
[2020-09-10] MEDS: polyethylene glycoL 3350 17 GM PACKET PO SCH (20:20)
[2020-09-10] MEDS: oxyCODONE 5 MG TABLET PO PRN (20:21)
[2020-09-10] MEDS: DOCUSATE SODIUM 100 MG CAPSULE PO SCH (20:21)
[2020-09-11] MEDS: METOCLOPRAMIDE 10 MG/2 ML VIAL IVP SCH ×4 (00:01→23:59)
[2020-09-11] MEDS: methocarbamoL 500 MG TABLET PO SCH ×5 (00:03→23:40)
[2020-09-11] MEDS: KETOROLAC 30 MG/ML VIAL IVP SCH ×5 (00:03→23:40)
[2020-09-11] MEDS: D5NS W/20 MEQ KCL 1,000 ML IV SCH ×3 (04:17→17:46)
[2020-09-11 05:15] LABS: ALBUMIN 3.2 g/dL (3.2-5.5); ALBUMIN/GLOBULIN RATIO 0.9 (1.0-2.2); ALKALINE PHOSPHATASE 62 IU/L (42-121); ALT ALANINE AMINOTRANSFERASE 74 IU/L (10-60); AST ASPARTATE AMINOTRANSFERASE 27 IU/L (10-42); BILIRUBIN,TOTAL 0.6 mg/dL (0.2-1.0); BUN - BLOOD UREA NITROGEN < 5 mg/dL (6-20); CALCIUM 9.4 mg/dL (8.5-10.3); CARBON DIOXIDE - CO2 22 mmol/L (21-32); CHLORIDE 105 mmol/L (101-111); CREATININE 0.8 mg/dL (0.4-1.0); GLUCOSE 146 mg/dL (70-100); TOTAL PROTEIN 6.8 g/dL (6.7-8.2)
[2020-09-11] MEDS: oxyCODONE 5 MG TABLET PO PRN (05:15)
[2020-09-11] MEDS ORDERED: MORPHINE 2 MG/ML CARPUJECT IVP PRN (07:47)
[2020-09-11] MEDS ORDERED: fentaNYL 100 MCG/2 ML VIAL IVP PRN (07:47)
[2020-09-11] MEDS ORDERED: HYDROmorphone 0.5 MG/0.5 ML SYRINGE IVP PRN (07:47)
[2020-09-11] MEDS ORDERED: ONDANSETRON 4 MG/2 ML VIAL IVP PRN ×2 (07:47→16:23)
[2020-09-11] MEDS ORDERED: NALOXONE 0.4 MG/ML VIAL IVP PRN (07:47)
[2020-09-11] MEDS ORDERED: ATROPINE ABBOJECT 1 MG/10 ML SYRINGE IVP PRN (07:47)
[2020-09-11] MEDS ORDERED: ePHEDrine 50 MG/ML VIAL IVP PRN (07:47)
[2020-09-11] MEDS ORDERED: LACTATED RINGERS 1,000 ML IV SCH (08:00)
--- NOTE | 2020-09-11 08:09 | ANESTHESIA ---
Pre-Anesthesia VS, & Labs - Diagnosis acute cholecystitis - Procedure laproscopic cholecystectomy Vital Signs: Temp Pulse Resp BP Pulse Ox 37.1 C 105 H 16 146/94 H 99 09/11/20 04:28 09/11/20 05:49 09/11/20 04:28 09/11/20 05:49 09/11/20 04:28 Height: 5 ft 4 in Weight (kg): 94 kg Body Mass Index: 35.5 BMI Classification: Obese - NPO >8 hours - Is Patient ?: No - Lab Results Current Lab Results: Laboratory Tests 09/11/20 03:57: Sodium 142, Potassium 4.6, Chloride 105, Carbon Dioxide 22, Anion Gap 15.0 H, BUN < 5 L, Creatinine 0.8, Estimated GFR (MDRD) 83 L, Glucose 146 H, Calcium 9.4, Total Bilirubin 0.6, AST 27, ALT 74 H, Alkaline Phosphatase 62, Total Protein 6.8, Albumin 3.2, Globulin 3.6, Albumin/Globulin Ratio 0.9 L 09/10/20 04:18: Sodium 135, Potassium 3.3 L, Chloride 101, Carbon Dioxide 22, Anion Gap 12.0, BUN 12, Creatinine 0.9, Estimated GFR (MDRD) 72 L, Glucose 122 H , Calcium 9.1, Total Bilirubin 0.3, AST 32, ALT 82 H, Alkaline Phosphatase 67, Total Protein 8.0, Albumin 4.0, Globulin 4.0, Albumin/Globulin Ratio 1.0, Lipase 49 09/10/20 04:18: WBC 9.1, RBC 4.83, Hgb 13.5, Hct 43.3, MCV 89.6, MCH 28.0, MCHC 31.2 L, RDW 13.2, Plt Count 570 H, MPV 8.8, Neut # (Auto) 6.4, Lymph # (Auto) 2.0, [place] # (Auto) 0.4, Eos # (Auto) 0.1, Baso # (Auto) 0.2 H, Absolute Nucleated RBC 0.00, Nucleated RBC % 0.0 Fish Bones: 09/10/20 04:18 09/11/20 03:57 Home Medications and Allergies Home Medications: Ambulatory Orders Ethinyl Estradiol/Drospirenone [Iqra 28 Tablet] 1 each PO 09/10/20 Metoprolol Tartrate [Lopressor] 50 mg PO DAILY 09/10/20 Omeprazole [PriLOSEC] 20 mg PO DAILY 09/10/20 Sucralfate [Carafate] 09/10/20 Active Medications Atropine Sulfate (Atropine Abboject 1 Mg/10 Ml Syringe) 0.5 mg IVP Q5M PRN PRN Reason: Bradycardia Stop: 09/12/20 07:47 Docusate Sodium (Docusate Sodium 100 Mg Capsule) 100 mg PO BID [facility] Last Admin: 09/10/20 20:21 Dose: 100 mg Documented by: Ephedrine Sulfate (Ephedrine 50 Mg/Ml Vial) 10 mg IVP Q5M PRN PRN Reason: HYPOTENSION Stop: 09/12/20 07:47 Fentanyl (Fentanyl 100 Mcg/2 Ml Vial) 25 - 50 mcg IVP Q5M PRN PRN Reason: BREAKTHROUGH PAIN (2nd Choice) Stop: 09/12/20 07:47 Hydromorphone HCl (Hydromorphone 0.5 Mg/0.5 Ml Syringe) 0.2 - 0.6 mg IVP Q5M PRN PRN Reason: PAIN (First Choice) Stop: 09/12/20 07:47 Potassium Chloride/Dextrose/Sod Cl () 1,000 mls @ 125 mls/hr IV .Q8H [facility] Last Admin: 09/11/20 04:17 Dose: 125 mls/hr Documented by: Lactated Ringer's (Lr) 1,000 mls @ 100 mls/hr IV .Q10H [facility] Stop: 09/11/20 17:59 Ketorolac Tromethamine (Ketorolac 30 Mg/Ml Vial) 15 mg IVP Q6HR [facility] Stop: 09/15/20 11:59 Last Admin: 09/11/20 05:16 Dose: 15 mg Documented by: Lorazepam (Lorazepam 2 Mg/Ml Vial) 0.5 mg IVP Q6H PRN PRN Reason: Spasms Last Admin: 09/10/20 18:41 Dose: 0.5 mg Documented by: Methocarbamol (Methocarbamol 500 Mg Tablet) 500 mg PO Q6HR [facility] Last Admin: 09/11/20 05:16 Dose: 500 mg Documented by: Metoclopramide HCl (Metoclopramide 10 Mg/2 Ml Vial) 10 mg IVP Q6HR [facility] Last Admin: 09/11/20 05:16 Dose: 10 mg Documented by: Metoprolol Tartrate (Metoprolol 5 Mg/5 Ml Vial) 5 mg IVP Q6H PRN PRN Reason: Hypertensive Emergency Last Admin: 09/10/20 18:42 Dose: 5 mg Documented by: Morphine Sulfate (Morphine 2 Mg/Ml Carpuject) 2 - 4 mg IVP Q5M PRN PRN Reason: PAIN (3rd Choice) Stop: 09/12/20 07:47 Naloxone HCl (Naloxone 0.4 Mg/Ml Vial) 0.1 mg IVP Q2M PRN PRN Reason: RESP RATE <8 Stop: 09/12/20 07:47 Ondansetron HCl (Ondansetron 4 Mg/2 Ml Vial) 4 mg IVP Q6HR PRN PRN Reason: Nausea / Vomiting Ondansetron HCl (Ondansetron 4 Mg/2 Ml Vial) 4 mg IVP ONCE PRN PRN Reason: N/V (First Choice) Stop: 09/12/20 07:47 Oxycodone HCl (Oxycodone 5 Mg Tablet) 5 mg PO Q4HR PRN PRN Reason: PAIN Last Admin: 09/11/20 05:15 Dose: 5 mg Documented by: Polyethylene Glycol (Polyethylene Glycol 3350 17 Gm Packet) 17 gm PO BID [facility] Last Admin: 09/10/20 20:20 Dose: 17 gm Documented by: Ethinyl Estradiol/Drospirenone [Iqra 28 Tablet] 1 each PO 09/10/20 Metoprolol Tartrate [Lopressor] 50 mg PO DAILY 09/10/20 Omeprazole [PriLOSEC] 20 mg PO DAILY 09/10/20 Sucralfate [Carafate] 09/10/20 Allergies/Adverse Reactions: Allergies Allergy/AdvReac Type Severity Reaction Status Date / Time No Known Drug Allergies Allergy Verified 09/10/20 04:01 Anes History & Medical History - Anesthetic History Family history of Anesthesia Complications: Denies Family history of Malignant Hyperthermia: Denies - Medical History Cardiovascular: reports: Hypertension Pulmonary: reports: Pneumonia Gastrointestinal: reports: Cholelithiasis Urinary: reports: None Neuro: reports: None Musculoskeletal: reports: None Endocrine/Autoimmune: reports: None Blood Disorders: reports: None Skin: reports: None Smoking Status: Never smoker History of Cancer?: No Other Past Medical History: pancreatitis Exam Dental: WNL Mouth Openin Fingerbreadth Neck Mobility: Normal Mallampati classification: III Thyromental Distance: 4-6 cm Respiratory: Lungs clear Cardiovascular: Regular rate Abdomen: Normal bowel sounds Extremities: No clubbing Neurological: Normal gait Mental/Cognitive Status: Alert/Oriented X3 Cognitive Status: Within normal limits Plan Anesthesia Type: General Consent for Procedure(s) Verified and Reviewed: Yes Code Status: Attempt Resuscitation ASA classification: 2-Mild systemic disease Is this case an emergency?: No
[2020-09-11] MEDS: polyethylene glycoL 3350 17 GM PACKET PO SCH ×2 (11:00→20:28)
--- NOTE | 2020-09-11 12:40 | MRI Report ---
PROCEDURE: MRCP W/O INDICATIONS: evaluate for choledocholithiasis TECHNIQUE: Coronal ultra fast SE through the abdomen, axial 2-D spoiled GE in- and [id number], and breath-hold T2 FSE with fat saturation through the biliary system and pancreas. Oblique coronal and axial thin- slice ultra fast SE, radial thick-slab ultra fast SE centered on the extrahepatic bile ducts. COMPARISON: CT abdomen pelvis 08/22/2020, ultrasound abdomen 09/10/2020 FINDINGS: Image quality: There is motion artifact limiting evaluation. Pancreas and biliary system: There are 2 intraluminal stones within the gallbladder, with the larges t stone measuring up to 1.8 cm in the region of the gallbladder neck. There is gallbladder wall thick ening and pericholecystic fluid. Intra and intrahepatic biliary ductal dilatation are demonstrated, w ith the common bile duct measuring up to approximately 0.9 cm. Although evaluation is limited by rochelle on artifact, there is a low signal intensity filling defect in the distal common bile duct at the amp mac suggestive of an obstructing stone. No pancreatic duct dilatation. There is mild pancreatic js a suggestive of pancreatitis. No loculated peripancreatic fluid collections. Other solid organs: Noncontrast evaluation of the liver demonstrates no discrete mass lesion. The spl een is normal in size. No adrenal nodules. Kidneys demonstrate no hydronephrosis. Nodes and vessels: No retroperitoneal or mesenteric adenopathy by size criteria. Aorta and inferior vena cava are normal in size. Bowel and peritoneum: Visualized bowel loops are normal in caliber. There is a small amount of intra -abdominal free fluid predominantly in the right upper quadrant. This includes perihepatic fluid as w ell as subhepatic fluid tracking along the visualized right paracolic gutter and right anterior parar enal space. Trace free fluid is demonstrated along the left anterior pararenal space. Lung bases: There is a trace right pleural effusion. Heart size is normal. Bones and soft tissues: No ventral hernias. Bone marrow is of normal overall signal. IMPRESSION: 1. Cholelithiasis with gallbladder wall thickening and pericholecystic fluid suggestive of acute chol ecystitis. 2. Intra and intrahepatic biliary duct dilatation with a small filling defect at the ampulla likely r epresenting a small obstructing stone. Recommend correlation with laboratory values. Findings discussed to Dr. Campos on 09/11/2020 at 12:35 PM. Reviewed by: Venu Umanzor MD on 09/11/2020 12:38 PM PST Approved by: Venu Umanzor MD on 09/11/2020 12:38 PM PST Station ID: [id number]
[2020-09-11] MEDS ORDERED: LIDOCAINE 2%-EPI 1:100000 20 ML MDV ONE (12:57)
[2020-09-11] MEDS ORDERED: IOTHALAMATE MEGLUMINE 50 ML VIAL ONE (12:57)
[2020-09-11] MEDS ORDERED: BUPIVACAINE 0.5% PF 30 ML VIAL ONE (12:57)
[2020-09-11] MEDS ORDERED: PROPOFOL 200 MG/20 ML VIAL IVP ONE ×2 (13:03→16:15)
[2020-09-11] MEDS ORDERED: LIDOCAINE-MPF 2% 5 ML VIAL ONE (13:03)
[2020-09-11] MEDS ORDERED: MIDAZOLAM 2 MG/2 ML VIAL ONE (13:03)
[2020-09-11] MEDS ORDERED: fentaNYL 100 MCG/2 ML VIAL ONE ×2 (13:03→13:56)
[2020-09-11] MEDS ORDERED: ONDANSETRON 4 MG/2 ML VIAL ONE (13:03)
[2020-09-11] MEDS ORDERED: ROCURONIUM 50 MG/5 ML VIAL ONE (13:03)
[2020-09-11] MEDS ORDERED: KETOROLAC 30 MG/ML VIAL ONE (13:03)
[2020-09-11] MEDS ORDERED: DEXAMETHASONE 4 MG/ML VIAL ONE (13:04)
[2020-09-11] MEDS ORDERED: ESMOLOL 100 MG/10 ML VIAL IVP ONE (13:34)
--- NOTE | 2020-09-11 13:40 | PROVIDER PROGRESS NOTE ---
Progress Note Subjective Hospital day #2 for biliary colic. Status post MRCP this a.m. Minimal pain. No nausea no vomiting. Remains on antibiotics. Bowel rest. Objective Afebrile hemodynamically acceptable General Appearance: positive: No acute distress Eyes Bilateral: positive: Normal inspection ENT: positive: ENT inspection nml Neck: positive: Nml inspection Respiratory: positive: Chest non-tender, No respiratory distress, Breath sounds nml. negative: Wheezes, Rales, Rhonchi Cardiovascular: positive: Regular rate & rhythm Abdomen: positive: No distention, Other. negative: Guarding, Rebound Extremities: positive: Non-tender, Full ROM, Nml appearance Neurologic/Psychiatric: positive: Oriented x3, CN's nml (2-12) LFTs within normal limits. MRCP consistent with cholecystitis. Possible distal CBD stone. Impression/Plan Plan diagnostic laparoscopy, laparoscopic cholecystectomy, intraoperative cholangiography, low clinical suspicion for CBD obstruction given normal LFTs. Risk and benefit discussed questions answered informed consent obtained.
[2020-09-11] MEDS ORDERED: LIDOCAINE 2%-EPI 1:100000 20 ML MDV SUBQ ONE ×2 (13:54)
[2020-09-11] MEDS ORDERED: BUPIVACAINE 0.5% PF 30 ML VIAL INFIL ONE ×2 (13:54)
[2020-09-11] MEDS ORDERED: HYDROmorphone 1 MG/ML CARPUJECT ONE (14:21)
[2020-09-11] MEDS: DOCUSATE SODIUM 100 MG CAPSULE PO SCH ×2 (15:35→20:28)
[2020-09-11] MEDS ORDERED: IOTHALAMATE MEGLUMINE 50 ML VIAL IVP ONE (16:09)
[2020-09-11] MEDS ORDERED: GLYCOPYRROLATE 1 MG/5 ML VIAL ONE (16:12)
[2020-09-11] MEDS ORDERED: NEOSTIGMINE 1 MG/1 ML 10 ML MDV ONE (16:12)
[2020-09-11] MEDS ORDERED: LACTATED RINGERS 1,000 ML IV ONE (16:30)
--- NOTE | 2020-09-11 16:46 | OPERATIVE REPORT ---
Operative Report - General Admit Date: 09/11/20 Procedure Date: 09/11/20 Planned Procedure: 1. Diagnostic laparoscopy 2. Laparoscopic cholecystectomy 3. Possible intraoperative cholangiography Pre-Op Diagnosis: Biliary colic; cholelithiasis; GS pancreatitis; possible choledocholith Procedure Performed: 1. Diagnostic laparoscopy 2. Laparoscopic cholecystectomy 3. Intraoperative cholangiography 4. Laparoscopic adhesiolysis 5. Hemostasis 6. Drain placement 7. Umbilical hernia repair Post Op Diagnosis: Same; no choledocholithiasis by intraop cholang; extensive inflammation - Procedure Note Primary Surgeon: Andres Secondary Surgeon: Joel Anesthesia Provider: Alida Anesthesia Technique: General ET tube, Local Pathology: 1. Umbilical hernia sac 2. Gallbladder Estimated Blood Loss (mL): 50 Drain/Tube Type: Gabriel drain Indications: See EMR Findings: 1. Fibrinous exudate over the gallbladder 2. Critical view of safety achieved 3. No biliary obstruction by intraoperative cholangiography 4. Dense "leather-like" inflammatory changes with acute on chronic findings consistent with cholecystitis 5. Hemostatic with placement of Surgicel and Bovie electrocautery Complications: None - Other Other Information/Narrative: See operative note
--- NOTE | 2020-09-11 17:26 | ANESTHESIA POST OP EVALUATION ---
Anesthesia Post Eval - Post Anesthesia Eval Vitals: Last Vital Signs Temp 37.3 C 09/11/20 17:20 Pulse 122 H 09/11/20 17:20 Resp 14 09/11/20 17:20 BP 172/109 H 09/11/20 17:20 Pulse Ox 100 09/11/20 17:20 CV Function Including HR & BP: positive: Stable Pain Control: positive: Satisfactory Nausea & Vomiting: positive: Negative Mental Status: positive: Baseline Respiratory Status: Airway Patent Hydration Status: Satisfactory Anesthesia Complications: positive: None (pt denies any pain, discomfort, or nausea. Pt claims to feel good. Noted per pt that her HR/BP increase with anxiety and has "whitecoat syndrome")
[2020-09-11] MEDS: METOPROLOL 5 MG/5 ML VIAL IVP PRN ×2 (17:45→23:54)
--- NOTE | 2020-09-11 17:49 | XRAY Report ---
PROCEDURE: OR C-Arm Procedure INDICATIONS: IOC COMPARISON: MRCP 09/11/2020. CT abdomen and pelvis 08/22/2020. CONTRAST: CONTRAST: [place] FINDINGS: Biliary ducts: The surgeon injected contrast into the biliary ducts after cannulation of the cystic duct stump. Visualized intra- and extrahepatic bile ducts are normal in caliber, without strictures. No intraluminal filling defects to suggest retained ductal stones or sludge. No evidence for iatro genic ductal injury. Duodenum: Contrast flows promptly through the sphincter of Oddi into the duodenum, which appears nor mal in caliber. IMPRESSION: Expected appearance of the intraoperative cholangiogram. No filling defect seen. Reviewed by: Frederick Kwan MD on 09/11/2020 5:48 PM PST Approved by: Frederick Kwan MD on 09/11/2020 5:48 PM PST Station ID: [id number]
[2020-09-11] MEDS ORDERED: PIPERACILLIN/TAZOBACTAM 4.5 GM in SODIUM CHLORIDE 0.9% MINIBAG 100 ML IV SCH (18:00)
[2020-09-11] MEDS: PIPERACILLIN/TAZOBACTAM 3.375 GM in SODIUM CHLORIDE 0.9% MINIBAG 100 ML IV SCH ×2 (19:24→23:40)
[2020-09-11] MEDS: LORazepam 2 MG/ML VIAL IVP PRN (23:54)
[2020-09-12] MEDS: D5NS W/20 MEQ KCL 1,000 ML IV SCH ×4 (01:48→20:45)
[2020-09-12] MEDS: KETOROLAC 30 MG/ML VIAL IVP SCH ×3 (05:16→17:33)
[2020-09-12] MEDS: METOCLOPRAMIDE 10 MG/2 ML VIAL IVP SCH ×3 (05:16→17:33)
[2020-09-12] MEDS: methocarbamoL 500 MG TABLET PO SCH ×3 (05:16→17:33)
[2020-09-12] MEDS: PIPERACILLIN/TAZOBACTAM 3.375 GM in SODIUM CHLORIDE 0.9% MINIBAG 100 ML IV SCH ×3 (05:20→21:46)
[2020-09-12 05:34] LABS: BASOPHILS # (AUTO) 0.1 10^3/uL (0.0-0.1); BASOPHILS % (AUTO) 0.5 %; EOSINOPHILS % (AUTO) 0.2 %; HGB - HEMOGLOBIN 11.3 g/dL (12.0-16.0); LYMPHOCYTES # (AUTO) 1.2 10^3/uL (1.5-3.5); LYMPHOCYTES % (AUTO) 9.2 %; MEAN CORPUSCULAR HEMOGLOBIN 28.1 pg (27.0-31.0); MEAN CORPUSCULAR HGB CONC 30.5 g/dL (32.0-36.0); MONOCYTES # (AUTO) 0.9 10^3/uL (0.0-1.0); MONOCYTES % (AUTO) 6.8 %; NEUTROPHILS % (AUTO) 82.8 %; PLT - PLATELET COUNT 399 10^3/uL (130-450); RED BLOOD COUNT 4.02 10^6/uL (4.20-5.40); RED CELL DISTRIBUTION WIDTH 13.6 % (12.0-15.0); WHITE BLOOD COUNT 13.3 x10^3/uL (4.8-10.8)
[2020-09-12 05:47] LABS: ALBUMIN 2.7 g/dL (3.2-5.5); ALBUMIN/GLOBULIN RATIO 0.8 (1.0-2.2); BILIRUBIN,TOTAL 0.7 mg/dL (0.2-1.0); CALCIUM 8.4 mg/dL (8.5-10.3); CREATININE 0.9 mg/dL (0.4-1.0); MAGNESIUM 1.7 mg/dL (1.7-2.8); PHOSPHORUS 2.2 mg/dL (2.5-4.6); TOTAL PROTEIN 6.3 g/dL (6.7-8.2)
[2020-09-12] MEDS: polyethylene glycoL 3350 17 GM PACKET PO SCH ×2 (07:58→20:42)
[2020-09-12] MEDS: DOCUSATE SODIUM 100 MG CAPSULE PO SCH ×2 (07:58→20:45)
[2020-09-12] MEDS: oxyCODONE 5 MG TABLET PO PRN ×3 (07:58→20:45)
--- NOTE | 2020-09-12 14:30 | PHARMACY PROGRESS NOTE ---
- Best Possible Medication History Admit Date and Time: 09/11/20 1340 Processed by: Pharmacy Medication History completed: Yes Patient Interview: Completed Secondary Source(s): Physician records, Pharmacy records, Insurance records As the person ultimately responsible for medication therapy, providers are able to order a medication from an existing home medication list in [facility] via the "Reconcile Routine" prior to Confirmation of that medication by instructional support services director. Such practice is discouraged except when the physician, in their clinical judgment, deems that a medical need exists for a medication without regard to previous use.
[2020-09-12] MEDS: PANTOPRAZOLE 40 MG TABLET PO SCH (15:48)
[2020-09-12] MEDS: METOPROLOL TARTRATE 25 MG TABLET PO SCH (17:32)
--- NOTE | 2020-09-12 17:58 | Discharge Plan ---
Discharge Plan Problem Reviewed?: Yes Disposition: Home, Self Care Condition: Good Prescriptions: oxyCODONE [Roxicodone] 5 mg PO Q4HR PRN #20 tablet PRN Reason: Pain Diet: Soft Activity Restrictions: No Restrictions Shower Restrictions: No Driving Restrictions: Yes (No driving on narcotics) Weight Bearing: Full Weight Instruction Topics: Gallstones, Cholecystectomy, Cholecystectomy Laparoscopic, ED Gallstone W Biliary Colic Assessment: Tolerating diet. No N/V. Afebrile. Appropriate for discharge to home. Additional Instructions or Follow Up instructions: DISCHARGE INSTRUCTIONS TEMPLATE: No heavy lifting, pushing, or pulling. Stairs are allowed, no strenuous/exertional activities. 5-10lbs weight carrying limit (i.e. gallon of milk) If provided, abdominal binder while out of bed and while ambulating. Call or proceed to clinic/ER for fevers, severe pain, nausea, vomiting, inability to pass flatus/stool, bleeding, wound redness/discharge, weakness, excessively loose stool/diarrhea, or for any other reasonably worrisome symptom or concern. Soft diet, no raw vegetables, avoid high fiber foods. Colace 100mg by mouth twice to three times daily while taking narcotic pain medication. If no bowel movement in 24-48hr, may take 17g Miralax in 8oz water twice daily until bowel movement. May shower, no submersive bathing. Follow up in clinic in 2-4 weeks for wound check and staple removal. No driving while taking narcotic pain medications. Follow up with primary care provider and/or medical subspecialist following discharge as well. Continue with Gabriel drain care. Return to clinic for drain removal Tuesday. No Smoking: If you smoke, Please STOP! Call for help. Follow-up with: MARISA CLARK, MSN, [employer] [Primary Care Provider] - Antwon Campos MD [Provider Admit Priv/Credential] -
--- NOTE | 2020-09-12 18:13 | DISCHARGE SUMMARY ---
"Discharge Summary Admit Date: 09/10/20 Discharge Date: 09/12/20 Discharging Provider: Andres Code Status: Attempt Resuscitation Condition at Discharge: Good Discharge Disposition: 01 Home, Self Care - DIAGNOSES Admission Diagnoses: 1. Biliary colic 2. Cholelithiasis 3. GS pancreatitis 4. Possible choledocholithiasis 5. No choledocholithiasis by intraop cholang 6. Extensive inflammation 7. Early Suppuration Discharge Diagnoses with Status of Each Condition: 1. Biliary colic - resolved 2. Cholelithiasis - resected/resolved 3. GS pancreatitis - resected/resolved 4. Possible choledocholithiasis - ruled out 5. No choledocholithiasis by intraop cholang 6. Extensive inflammation - abx/improved 7. Early Suppuration - abx/improved - HPI History of Present Illness: 35-year-old female nuliparous/gravid, no prior abdominal surgery, who presents with recurrent ongoing abdominal pain that was recently evaluated through the emergency room and concerning for pancreatitis. She was pending continued outpatient work-up up until the time she was referred to the emergency room. She has had multiple episodes of nausea abdominal pain associated with fatty foods. Her ultrasound was consistent with cholelithiasis and early cholecyst itis. Patient was explained this is likely the etiology of her recent diagnosis of pancreatitis which was in all probability gallstone in etiology. She was counseled that given the findings of biliary dilatation the concern for choledocholithiasis would necessarily need to be ruled out by MRCP prior to proceeding with surgical resection. She has no significant past medical history, no significant family history, and is eager for definitive intervention. She is admitted and pending operative intervention following completion of her work-up. - CONSULTS | PROCEDURES Consultations: None Procedures: Pre-Op Diagnosis: Biliary colic; cholelithiasis; GS pancreatitis; possible choledocholithiasis Procedure Performed: 1. Diagnostic laparoscopy 2. Laparoscopic cholecystectomy 3. Intraoperative cholangiography 4. Laparoscopic adhesiolysis 5. Hemostasis 6. Drain placement 7. Umbilical hernia repair Post Op Diagnosis: Same; no choledocholithiasis by intraop cholang; extensive inflammation - HOSPITAL COURSE Hospital Course: 35-year-old female with no significant past medical history presenting with early acute cholecystitis and biliary colic with multiple recent trips to the ER for abdominal pain; most recent of which concerning for pancreatitis however in this clinical context following abdominal ultrasound with cholelithiasis was likely gallstone in etiology. There is no leukocytosis. Concern for choledocholithiasis. Pending MRCP. Plan going forward is as follows: 1. Bowel rest, IV fluid resuscitation, IV antibiotics. 2. Preoperative chest x-ray, preoperative EKG, labs evaluated. 3. Planned diagnostic laparoscopy, laparoscopic cholecystectomy, other indicated procedures. Patient counseled of the risk associated with operative intervention including but not limited to conversion to open procedure, injury to local structures, and anesthesia risks of heart attack, stroke, . There is also the risk of injury to the biliary system. There is also concern for choledocholithiasis which we will evaluate with MRCP. 4. Postoperative care under observation status with continued IV antibiotics. CT abdomen pelvis August 22, 2020 impression: 1. Generalized inflammatory change can seen involving the upper abdomen, with numerous areas of bowel wall thickening as well as fatty stranding. Borderline prominent lymph nodes are seen. The imaging appearance is nonspecific although please consider pancreatitis. 2. No findings of perforation or abscess are detected. 3. Generalized free fluid can be seen, involving a mild amount of free fluid layering within the pelvis. 4. Mild bilateral hydronephrosis can be seen. Abdominal ultrasound September 10 impression: 1. Hepatomegaly with steatosis. 2. Cholelithiasis with borderline wall thickness and peripancreatic fluid suggested of developing cholecystitis. Clinical correlation is recommended. It is noted that the common bile duct is enlarged. Distal ductal stone cannot be excluded although not definitively visualized. CT abdomen pelvis or MRCP is recommended for further evaluation. Please note that voice recognition software was used to transcribe this note and inadvertent errors might persist in spite of review and editing. I am obliged to you for your attention. I am thankful to you for allowing me to participate with you in this care of this patient. Hospital Course: Patient admitted with right upper quadrant abdominal pain, leukocytosis, known cholelithiasis by ultrasound along with possible biliary dilatation. Imaging consistent with early cholecystitis. Admitted with antibiotics towards attempted defervescence of acute inflammatory changes. Secondary to dilation of the biliary tree, obtained MRCP which was concerning for small filling defect at the distal CBD however LFTs remain within normal limits. Underwent operative intervention as listed elsewhere. Patient had been advised that additional time with bowel rest and antibiotics could potentially reduce associated risk, however he was adamant to undergo operative intervention when discussed at length. Intraoperative cholangiogram was normal with no obstruction. Acute inflammatory changes noted. No complication. [Critical view of safety achieved]. No leak or spillage. Intraoperative drain placed. Patient underwent operative intervention as listed in the electronic medical record. Tolerated procedure well for which there was no complication. Postoperatively the patient was managed for postoperative analgesia and resumption of bowel function. Patient had successfully passed trial of void. Tolerated oral intake without any complication. Denied nausea and denied vomiting. Was advanced for diet without any complication. Was counseled that given evidence of suppuration would recommend continued antibiotics for 2 weeks; patient was maintained on antibiotics during the hospital stay. Patient was kept an extra day postoperatively secondary to febrile episode and persistent leukocytosis. Discharge instructions given. Analgesia with oxycodone provided at time of discharge. Patient plan for follow-up and will be notified of pathology once returned. Please note that voice recognition software was used to transcribe this note and inadvertent errors might persist in spite of review and editing. I am obliged to you for your attention. I am thankful to you for allowing me to participate with you in this care of this patient. - ALLERGIES Allergies/Adverse Reactions: Allergies Allergy/AdvReac Type Severity Reaction Status Date / Time No Known Drug Allergies Allergy Verified 09/10/20 04:01 - MEDICATIONS Home Medications: Ambulatory Orders Medication Instructions Recorded Confirmed Ethinyl Estradiol/Drospirenone 1 each PO DAILY 09/10/20 09/12/20 [Iqra 28 Tablet] Metoprolol Tartrate [Lopressor] 25 mg PO BID 09/10/20 09/12/20 Omeprazole [PriLOSEC] 20 mg PO QDAC 09/10/20 09/12/20 Docusate Sodium 100Mg Capsule 100 mg PO BID capsule 09/12/20 [Colace 100Mg Capsule] oxyCODONE [Roxicodone] 5 mg PO Q4HR PRN #20 tablet 09/12/20 polyethylene glycoL 3350 [Miralax] 17 gm PO BID packet 09/12/20 Amox/Clav 875/125 [Augmentin] 1 each PO Q12H #20 tablet 09/13/20 - PHYSICAL EXAM AT DISCHARGE General Appearance: positive: No acute distress, Alert Eyes Bilateral: positive: Normal inspection, PERRL, EOMI ENT: positive: ENT inspection nml Neck: positive: Nml inspection Respiratory: positive: Chest non-tender, No respiratory distress, Breath sounds nml. negative: Wheezes, Rales, Rhonchi Cardiovascular: positive: Regular rate & rhythm Abdomen: positive: Non-tender, Other (Nontender nondistended appropriately tender no rebound no guarding drain in place serosanguineous no bilious output.). negative: Tenderness, Guarding, Rebound Skin: positive: Color nml Extremities: positive: Non-tender, Full ROM, Nml appearance Neurologic/Psychiatric: positive: Oriented x3, CN's nml (2-12), Motor nml, Sensation nml, Mood/affect nml - LABS Result Diagrams: 09/13/20 05:07 09/13/20 05:07 - DIAGNOSTIC IMAGING Diagnostic Imaging Results: Prelim report reviewed - SEPSIS Current Stage of Sepsis: Ruled out - FOLLOW UP Follow Up: DISCHARGE INSTRUCTIONS TEMPLATE: No heavy lifting, pushing, or pulling. Stairs are allowed, no strenuous/exertional activities. 5-10lbs weight carrying limit (i.e. gallon of milk) If provided, abdominal binder while out of bed and while ambulating. Call or proceed to clinic/ER for fevers, severe pain, nausea, vomiting, inability to pass flatus/stool, bleeding, wound redness/discharge, weakness, excessively loose stool/diarrhea, or for any other reasonably worrisome symptom or concern. Soft diet, no raw vegetables, avoid high fiber foods. Colace 100mg by mouth twice to three times daily while taking narcotic pain medication. If no bowel movement in 24-48hr, may take 17g Miralax in 8oz water twice daily until bowel movement. May shower, no submersive bathing. Follow up in clinic in 2-4 weeks for wound check and staple removal. No driving while taking narcotic pain medications. Follow up with primary care provider and/or medical subspecialist following discharge as well. Continue with [facility] drain care. Return to clinic for drain removal Tuesday. - TIME SPENT Time Spent in Discharge (Minutes): 45"
[2020-09-12] MEDS: LORazepam 2 MG/ML VIAL IVP PRN (22:39)
[2020-09-13] MEDS: methocarbamoL 500 MG TABLET PO SCH ×2 (00:30→07:02)
[2020-09-13] MEDS: ACETAMINOPHEN 1,000 MG/100 ML 100 ML IV SCH ×3 (00:30→12:43)
[2020-09-13] MEDS: METOCLOPRAMIDE 10 MG/2 ML VIAL IVP SCH ×2 (01:30→06:52)
[2020-09-13] MEDS: oxyCODONE 5 MG TABLET PO PRN ×2 (01:41→07:02)
[2020-09-13] MEDS: LORazepam 2 MG/ML VIAL IVP PRN (05:16)
[2020-09-13 05:23] LABS: BASOPHILS # (AUTO) 0.1 10^3/uL (0.0-0.1); BASOPHILS % (AUTO) 0.7 %; EOSINOPHILS # (AUTO) 0.3 10^3/uL (0.0-0.7); EOSINOPHILS % (AUTO) 2.6 %; HGB - HEMOGLOBIN 11.1 g/dL (12.0-16.0); LYMPHOCYTES # (AUTO) 2.3 10^3/uL (1.5-3.5); LYMPHOCYTES % (AUTO) 20.1 %; MEAN CORPUSCULAR HGB CONC 30.2 g/dL (32.0-36.0); MEAN CORPUSCULAR VOLUME 92.7 fL (81.0-99.0); MONOCYTES # (AUTO) 0.7 10^3/uL (0.0-1.0); MONOCYTES % (AUTO) 5.8 %; NEUTROPHILS # (AUTO) 8.1 10^3/uL (1.5-6.6); NEUTROPHILS % (AUTO) 70.3 %; PLT - PLATELET COUNT 397 10^3/uL (130-450); RED BLOOD COUNT 3.96 10^6/uL (4.20-5.40); RED CELL DISTRIBUTION WIDTH 13.8 % (12.0-15.0); WHITE BLOOD COUNT 11.5 x10^3/uL (4.8-10.8)
[2020-09-13 05:36] LABS: ALBUMIN 2.8 g/dL (3.2-5.5); ALBUMIN/GLOBULIN RATIO 0.8 (1.0-2.2); BILIRUBIN,TOTAL 0.6 mg/dL (0.2-1.0); CALCIUM 8.2 mg/dL (8.5-10.3); CREATININE 0.8 mg/dL (0.4-1.0); MAGNESIUM 1.7 mg/dL (1.7-2.8); PHOSPHORUS 3.1 mg/dL (2.5-4.6); TOTAL PROTEIN 6.2 g/dL (6.7-8.2)
[2020-09-13] MEDS: PIPERACILLIN/TAZOBACTAM 3.375 GM in SODIUM CHLORIDE 0.9% MINIBAG 100 ML IV SCH (06:57)
[2020-09-13] MEDS: PANTOPRAZOLE 40 MG TABLET PO SCH (07:02)
[2020-09-13] MEDS ORDERED: DROSPIRENONE PO SCH (09:00)
[2020-09-13] MEDS ORDERED: ENOXAPARIN 40 MG/0.4 ML SYRINGE SUBQ SCH (09:00)
[2020-09-13] MEDS ORDERED: ETHINYL ESTRADIOL PO SCH (09:00)
[2020-09-13] MEDS: polyethylene glycoL 3350 17 GM PACKET PO SCH (09:32)
[2020-09-13] MEDS: DOCUSATE SODIUM 100 MG CAPSULE PO SCH (09:32)
[2020-09-13] MEDS: METOPROLOL TARTRATE 25 MG TABLET PO SCH (09:32)
[2020-09-13] MEDS: D5NS W/20 MEQ KCL 1,000 ML IV SCH (11:00)
[2020-09-13 13:11] VITALS: BP 144/97
== END 2020-09-13 13:35 | disposition home or self-care (01) ==
LOC: ED 03:54 → SDS 11:06 → MS2 11:06 → SDS 09-11 13:39 → MS2 09-11 13:40
PROVIDERS: ADMIT Surgery; ATTEND Surgery
PROC: 0FT44ZZ Resection of Gallbladder, Percutaneous Endoscopic Approach (ICD-10-PCS; principal; 2020-09-11 10:00)
DX: K80.12 Calculus of gallbladder with acute and chronic cholecystitis without obstruction (principal); K82.8 Other specified diseases of gallbladder; K85.10 Biliary acute pancreatitis without necrosis or infection; K42.9 Umbilical hernia without obstruction or gangrene; N99.4 Postprocedural pelvic peritoneal adhesions; Z20.822 Contact with and (suspected) exposure to COVID-19; I10 Essential (primary) hypertension; K76.0 Fatty (change of) liver, not elsewhere classified; E66.9 Obesity, unspecified; Z68.35 Body mass index [BMI] 35.0-35.9, adult; Z87.01 Personal history of pneumonia (recurrent)
CPT/HCPCS: 0202U; 36415; 47563; 74181; 76705; 80048; 80053; 81003; 81025; 83690; 83735; 84100; 85025; 96365; 96366; 96367; 96372; 96375; 96376; 99284; 99285; A9270; G0378; J0131; J1170; J1650; J2060; J2765; J7120; Q9961; 81001; 87086

== ENCOUNTER 2020-09-26 08:00 | Outpatient (CLI) | payer OTHER ==
[2020-09-26 19:14] LABS: BASOPHILS # (AUTO) 0.2 10^3/uL (0.0-0.1); BASOPHILS % (AUTO) 2.1 %; EOSINOPHILS # (AUTO) 0.2 10^3/uL (0.0-0.7); EOSINOPHILS % (AUTO) 2.2 %; HGB - HEMOGLOBIN 13.4 g/dL (12.0-16.0); LYMPHOCYTES # (AUTO) 2.8 10^3/uL (1.5-3.5); LYMPHOCYTES % (AUTO) 38.4 %; MEAN CORPUSCULAR HEMOGLOBIN 28.1 pg (27.0-31.0); MEAN CORPUSCULAR HGB CONC 30.3 g/dL (32.0-36.0); MEAN CORPUSCULAR VOLUME 92.7 fL (81.0-99.0); MEAN PLATELET VOLUME 9.1 fL (7.9-10.8); MONOCYTES # (AUTO) 0.4 10^3/uL (0.0-1.0); MONOCYTES % (AUTO) 5.4 %; NEUTROPHILS # (AUTO) 3.7 10^3/uL (1.5-6.6); NEUTROPHILS % (AUTO) 51.6 %; PLT - PLATELET COUNT 630 10^3/uL (130-450); RED BLOOD COUNT 4.77 10^6/uL (4.20-5.40); RED CELL DISTRIBUTION WIDTH 13.8 % (12.0-15.0); WHITE BLOOD COUNT 7.2 x10^3/uL (4.8-10.8)
[2020-09-26 19:34] LABS: ALBUMIN 3.5 g/dL (3.2-5.5); BILIRUBIN,TOTAL 0.3 mg/dL (0.2-1.0); CALCIUM 9.6 mg/dL (8.5-10.3); CREATININE 0.8 mg/dL (0.4-1.0); TOTAL PROTEIN 7.1 g/dL (6.7-8.2)
== END 2020-09-26 23:59 | disposition home or self-care (01) ==
LOC: LAB.WCP 08:00
PROVIDERS: ATTEND Nurse Practitioner Family
DX: D72.829 Elevated white blood cell count, unspecified (principal); R79.89 Other specified abnormal findings of blood chemistry
CPT/HCPCS: 36415; 80053; 85025

== ENCOUNTER 2021-02-05 08:00 | Outpatient (CLI) | payer OTHER ==
[2021-02-05 11:35] LABS: BASOPHILS # (AUTO) 0.1 10^3/uL (0.0-0.1); BASOPHILS % (AUTO) 1.7 %; EOSINOPHILS # (AUTO) 0.1 10^3/uL (0.0-0.7); EOSINOPHILS % (AUTO) 1.5 %; HCT - HEMATOCRIT 42.5 % (37.0-47.0); HGB - HEMOGLOBIN 13.5 g/dL (12.0-16.0); LYMPHOCYTES # (AUTO) 2.5 10^3/uL (1.5-3.5); LYMPHOCYTES % (AUTO) 37.9 %; MEAN CORPUSCULAR HEMOGLOBIN 28.3 pg (27.0-31.0); MEAN CORPUSCULAR HGB CONC 31.8 g/dL (32.0-36.0); MEAN CORPUSCULAR VOLUME 89.1 fL (81.0-99.0); MEAN PLATELET VOLUME 9.3 fL (7.9-10.8); MONOCYTES # (AUTO) 0.3 10^3/uL (0.0-1.0); MONOCYTES % (AUTO) 4.7 %; NEUTROPHILS # (AUTO) 3.6 10^3/uL (1.5-6.6); NEUTROPHILS % (AUTO) 53.9 %; PLT - PLATELET COUNT 465 10^3/uL (130-450); RED BLOOD COUNT 4.77 10^6/uL (4.20-5.40); RED CELL DISTRIBUTION WIDTH 12.6 % (12.0-15.0); WHITE BLOOD COUNT 6.6 x10^3/uL (4.8-10.8)
[2021-02-05 11:57] LABS: ALBUMIN 3.8 g/dL (3.2-5.5); BILIRUBIN,TOTAL 0.6 mg/dL (0.2-1.0); CALCIUM 9.3 mg/dL (8.5-10.3); CREATININE 0.9 mg/dL (0.4-1.0); POTASSIUM 3.8 mmol/L (3.5-5.0); TOTAL PROTEIN 7.8 g/dL (6.7-8.2)
== END 2021-02-05 23:59 | disposition home or self-care (01) ==
LOC: LAB.WCP 08:00
PROVIDERS: ATTEND Nurse Practitioner Family
DX: R79.89 Other specified abnormal findings of blood chemistry (principal); I10 Essential (primary) hypertension; Z13.220 Encounter for screening for lipoid disorders
CPT/HCPCS: 36415; 80053; 82150; 83690; 85025

== ENCOUNTER 2021-03-09 11:28 | Outpatient (CLI) | payer OTHER ==
[2021-03-09 17:53] LABS: BASOPHILS # (AUTO) 0.1 10^3/uL (0.0-0.1); BASOPHILS % (AUTO) 1.3 %; EOSINOPHILS # (AUTO) 0.1 10^3/uL (0.0-0.7); EOSINOPHILS % (AUTO) 1.9 %; HCT - HEMATOCRIT 43.3 % (37.0-47.0); HGB - HEMOGLOBIN 13.6 g/dL (12.0-16.0); LYMPHOCYTES # (AUTO) 2.2 10^3/uL (1.5-3.5); LYMPHOCYTES % (AUTO) 37.3 %; MEAN CORPUSCULAR HEMOGLOBIN 28.6 pg (27.0-31.0); MEAN CORPUSCULAR HGB CONC 31.4 g/dL (32.0-36.0); MONOCYTES # (AUTO) 0.3 10^3/uL (0.0-1.0); MONOCYTES % (AUTO) 5.4 %; NEUTROPHILS # (AUTO) 3.2 10^3/uL (1.5-6.6); NEUTROPHILS % (AUTO) 53.9 %; PLT - PLATELET COUNT 474 10^3/uL (130-450); RED BLOOD COUNT 4.76 10^6/uL (4.20-5.40); RED CELL DISTRIBUTION WIDTH 12.7 % (12.0-15.0); WHITE BLOOD COUNT 5.9 x10^3/uL (4.8-10.8)
[2021-03-09 18:05] LABS: ALBUMIN/GLOBULIN RATIO 1.1 (1.0-2.2); BILIRUBIN,TOTAL 0.4 mg/dL (0.2-1.0); CALCIUM 9.3 mg/dL (8.5-10.3); CREATININE 0.9 mg/dL (0.4-1.0); TOTAL PROTEIN 7.6 g/dL (6.7-8.2)
== END 2021-03-09 11:29 | disposition home or self-care (01) ==
LOC: LAB.N 11:28
PROVIDERS: ATTEND Nurse Practitioner
DX: M79.89 Other specified soft tissue disorders (principal)
CPT/HCPCS: 36415; 80053; 83880; 85025